=== PATIENT | female | born 1955 | race Caucasian/White ===

== ENCOUNTER → 2019-02-22 | Outpatient (CLI) | payer OTHER ==
[2019-02-22 10:39] LABS: INR 0.97 (0.85-1.15); PARTIAL THROMBOPLASTIN TIME 27.8 SEC (26.3-35.5); PROTHROMBIN TIME 10.2 SEC (9.6-11.6)
--- NOTE | 2019-02-22 11:15 | NUR ---
U/S GUIDED BIOPSY OF NODULE TO LEFT UPPER ARM PROCEDURE PERFORMED BY DR. MA. PUNCTURE SITE LEFT UPPER ARM. PATIENT TOLERATED PROCEDURE WELL. SPECIMEN X 5 COLLECTED. END OF PROCEDURE AT 1125. BIOPSY NEEDLE REMOVED AND DRESSING APPLIED. NO BLEEDING NOTED. PT GIVEN DISCHARGE INSTRUCTIONS. PT VERBALIZED UNDERSTANDING. PT DISCHARGED AMBULATORY, STABLE, AAO X 3, WITH NO C/O PAIN. SPECIMEN SENT TO LAB.
== END ==
LOC: RAH 09:35
PROVIDERS: ATTEND Family Medicine
DX: R22.32 Localized swelling, mass and lump, left upper limb (principal); D36.10 Benign neoplasm of peripheral nerves and autonomic nervous system, unspecified; Z88.0 Allergy status to penicillin
CPT/HCPCS: 20206; 36415; 76942; 85610; 85730; 88305; A4215 ×2

== ENCOUNTER → 2020-09-06 | Outpatient (CLI) | payer MEDICARE | END | disposition home or self-care (01) | LOC: RAH 13:49 | PROVIDERS: ATTEND Family Medicine | DX: Z01.810 Encounter for preprocedural cardiovascular examination (principal) | CPT/HCPCS: 71046 ==

== ENCOUNTER → 2020-11-16 | Outpatient (CLI) | payer MEDICARE | END | disposition home or self-care (01) | LOC: RAH 11:32 | PROVIDERS: ATTEND Family Medicine | DX: M25.551 Pain in right hip (principal); Z96.641 Presence of right artificial hip joint | CPT/HCPCS: 73502 ==